=== PATIENT | female | born 1955 | race Asian ===

== ENCOUNTER 2017-08-31 21:03 | Emergency (ER) | payer BC ==
[~2017-08-31] VITALS: Ht 144.8 cm; Wt 56.5 kg
[~2017-08-31 21:03] MED LIST: ALBU8.5H8 INH; ALLO300T PO; ATOR-2 PO; CARV12.52 PO; CHOL500015 PO; ESTR0.5T3 PO; FENO43CA3 PO; FURO20TA3 PO; HYDR-3343 PO; INSU100C5 SQ-INSULIN; INSU100V13 SQ; LEVIMER; MOME13HF3 INH; OMEP-110 PO; RANI-276 PO; RANI300C PO; SIMV10TA3 PO; SODI650T PO; SUCR1TAB33 PO; VALS1TAB7 PO; VALS320T2 PO
[2017-08-31 21:06] VITALS: BP 171/77
[2017-08-31] MEDS ORDERED: ONDANSETRON ODT 4 MG ONE (21:53)
[2017-08-31] MEDS ORDERED: PHENAZOPYRIDINE 200 MG TABLET ONE (21:53)
[2017-08-31] MEDS ORDERED: ACETAMINOPHEN 325 MG TABLET ONE (21:54)
[2017-08-31] MEDS ORDERED: ACETAMINOPHEN 325 MG TABLET PO ONE (22:00)
[2017-08-31] MEDS ORDERED: ONDANSETRON ODT 4 MG PO ONE (22:00)
[2017-08-31] MEDS ORDERED: PHENAZOPYRIDINE 200 MG TABLET PO ONE (22:00)
[2017-08-31] MEDS ORDERED: CIPROFLOXACIN 500 MG TABLET PO ONE (23:00)
[2017-08-31] MEDS ORDERED: CIPROFLOXACIN 500 MG TABLET ONE (23:10)
[2017-08-31] MEDS ORDERED: IBUPROFEN 100 MG/5 ML UDC ONE (23:31)
== END 2017-08-31 23:20 ==
LOC: ED 22:15
DX: N30.01 Acute cystitis with hematuria (principal); R30.0 Dysuria
CPT/HCPCS: 81001; 87077; 87086; 87186; 99284; Q0162

== ENCOUNTER → 2017-09-22 | Outpatient (CLI) | payer BC | END | disposition home or self-care (01) | LOC: RAD 10:08 | PROVIDERS: ATTEND Family Medicine | DX: I65.23 Occlusion and stenosis of bilateral carotid arteries (principal) | CPT/HCPCS: 93880 ==

== ENCOUNTER → 2017-10-20 | Outpatient (CLI) | payer BC ==
[~2017-10-20] MED LIST changes: +GADOBUTROL 7.5 MMOL/7.5 ML PFS ONE
== END | disposition home or self-care (01) ==
LOC: CFH 13:07
PROVIDERS: ATTEND Family Medicine
DX: R42 Dizziness and giddiness (principal)
CPT/HCPCS: 70553; A9585

== ENCOUNTER → 2017-11-23 | Outpatient (CLI) | payer BC ==
[~2017-11-23] MED LIST changes: -GADOBUTROL 7.5 MMOL/7.5 ML PFS ONE
== END | disposition home or self-care (01) ==
LOC: CFH 10:20
PROVIDERS: ATTEND Family Medicine
DX: M54.2 Cervicalgia (principal)
CPT/HCPCS: 72040

== ENCOUNTER 2018-12-04 08:07 | Outpatient (CLI) | payer BC ==
[~2018-12-04] VITALS: Ht 144.8 cm; Wt 54.1 kg
[~2018-12-04 08:07] MED LIST changes: -RANI-276 PO; +RANI-448 PO
[2018-12-04 09:21] LABS: BASOPHILS # (AUTO) 0.04 x10^3/uL (0-0.1); BASOPHILS % (AUTO) 1 % (0-1); LYMPHOCYTES % (AUTO) 22 % (22-44); MD NO; PLATELET COUNT 264 x10^3/uL (130-400); RED BLOOD COUNT 4.07 x10^6/uL (3.82-5.3)
[2018-12-04] MEDS ORDERED: TELM80TA PO (09:26)
[2018-12-04] MEDS ORDERED: AZEL137S4 NAS (09:26)
[2018-12-04] MEDS ORDERED: MOME13HF INH (09:26)
[2018-12-04] MEDS ORDERED: MONT10TA9 PO (09:26)
[2018-12-04] MEDS ORDERED: FLUT12AE2 INH (09:26)
[2018-12-04] MEDS ORDERED: FEXO180T72 PO (09:26)
[2018-12-04] MEDS ORDERED: centrum PO (09:26)
[2018-12-04] MEDS ORDERED: INSU100I28 SC (09:26)
[2018-12-04] MEDS ORDERED: METF500T17 PO (09:26)
[2018-12-04] MEDS ORDERED: INSU100C SQ-INSULIN (09:26)
[2018-12-04] MEDS ORDERED: MOME17SP NAS (09:26)
[2018-12-04 09:32] LABS: EOSINOPHILS # (AUTO) 0.36 x10^3/uL (0-0.4); EOSINOPHILS % (AUTO) 5 % (1-7); LYMPHOCYTES # (AUTO) 1.62 x10^3/uL (1-3.4); MEAN CORPUSCULAR HEMOGLOBIN 27.8 pg (27.0-34.8); MEAN CORPUSCULAR HGB CONC 32.8 g/dL (32.4-35.8); MEAN CORPUSCULAR VOLUME 84.7 fL (80-100); MEAN PLATELET VOLUME 8.6 fL (7.4-10.4); MONOCYTES # (AUTO) 0.36 x10^3/uL (0.2-0.8); MONOCYTES % (AUTO) 5 % (2-9); NEUTROPHILS # (AUTO) 4.94 x10^3/uL (1.8-6.8); NEUTROPHILS % (AUTO) 67 % (42-75); RED CELL DISTRIBUTION WIDTH 13.3 % (9.6-15.2)
[2018-12-04 09:33] LABS: ANION GAP 8 mmol/L (5-15); CALCIUM 9.2 mg/dL (8.5-10.1); CHLORIDE 110 mmol/L (98-107)
[2018-12-04 09:36] LABS: CREATININE 1.14 mg/dL (0.55-1.02)
== END 2018-12-04 23:59 | disposition home or self-care (01) ==
LOC: STAR 08:07
PROVIDERS: ATTEND Internal Medicine Cardiovascular Disease
DX: E11.22 Type 2 diabetes mellitus with diabetic chronic kidney disease (principal); I12.9 Hypertensive chronic kidney disease with stage 1 through stage 4 chronic kidney disease, or unspecified chronic kidney disease; N18.3 Chronic kidney disease, stage 3 (moderate); E11.21 Type 2 diabetes mellitus with diabetic nephropathy; E78.5 Hyperlipidemia, unspecified; E78.2 Mixed hyperlipidemia
CPT/HCPCS: 36415; 80048; 85025

== ENCOUNTER 2018-12-11 08:31 | Day surgery (SDC) | payer BC ==
[~2018-12-11] VITALS: Ht 144.8 cm; Wt 54.1 kg
[~2018-12-11 08:31] MED LIST changes: +AZEL137S4 NAS; +FEXO180T72 PO; +FLUT12AE2 INH; +INSU100C SQ-INSULIN; +INSU100I28 SC; +METF500T17 PO; +MOME13HF INH; +MOME17SP NAS; +MONT10TA9 PO; +TELM80TA PO; +centrum PO
[2018-12-11 08:59] VITALS: BP 175/89
[2018-12-11] MEDS ORDERED: LIRA0.6P SQ (09:17)
[2018-12-11] MEDS ORDERED: INSU100C SQ-INSULIN (09:17)
[2018-12-11] MEDS ORDERED: INSU100I28 SC (09:17)
[2018-12-11] MEDS ORDERED: ASPI81TA45 PO (09:22)
[2018-12-11] MEDS ORDERED: MIDAZOLAM 1 MG/ML, 2ML ONE (10:43)
[2018-12-11] MEDS ORDERED: FENTANYL PF 100 MCG/2ML ONE (10:43)
[2018-12-11] MEDS ORDERED: LIDOCAINE 2%, 20ML ONE (10:44)
[2018-12-11] MEDS ORDERED: DIPHENHYDRAMINE 50 MG/ML, 1ML ONE (10:44)
== END 2018-12-11 14:46 | disposition home or self-care (01) ==
LOC: CACL 08:31
PROVIDERS: ATTEND Internal Medicine Cardiovascular Disease
DX: I25.119 Atherosclerotic heart disease of native coronary artery with unspecified angina pectoris (principal); I12.9 Hypertensive chronic kidney disease with stage 1 through stage 4 chronic kidney disease, or unspecified chronic kidney disease; E11.22 Type 2 diabetes mellitus with diabetic chronic kidney disease; N18.3 Chronic kidney disease, stage 3 (moderate); Z79.4 Long term (current) use of insulin; E11.40 Type 2 diabetes mellitus with diabetic neuropathy, unspecified; E78.2 Mixed hyperlipidemia; H35.30 Unspecified macular degeneration; Z88.1 Allergy status to other antibiotic agents; Z88.8 Allergy status to other drugs, medicaments and biological substances; Z88.0 Allergy status to penicillin
CPT/HCPCS: 93458; 99156; C1760; C1769; C1894; J1200; J2250; J3010; J3490; Q9967